=== PATIENT | male | born 1955 | race Asian ===

== ENCOUNTER 2016-08-08 09:28 | Day surgery (SDC) | payer OTHER ==
[~2016-08-08] VITALS: Ht 165.1 cm; Wt 69.6 kg
[2016-08-08 10:29] VITALS: Ht 165.1 cm; Wt 69.6 kg
[2016-08-08] MEDS ORDERED: METF500T4 PO (10:42)
[2016-08-08] MEDS ORDERED: ASPI-664 PO (10:42)
[2016-08-08] MEDS ORDERED: ATOR40TA68 PO (10:42)
[2016-08-08] MEDS ORDERED: LISI10TA2 PO (10:42)
[2016-08-08] MEDS ORDERED: MIDAZOLAM 1 MG/ML 2 ML INJ ONE (11:07)
[2016-08-08] MEDS ORDERED: PROPOFOL 40 ML ONE (11:07)
[2016-08-08] MEDS ORDERED: LIDOCAINE 2% (SDV) 5 ML INJ ONE (11:07)
[2016-08-08 11:12] VITALS: BP 139/81; PULSE 88; RESP 19
[2016-08-08 12:07] VITALS: BP 121/78; PULSE 73; RESP 19
--- NOTE | 2016-08-08 12:45 | GILP ---
DATE OF PROCEDURE: 08/08/2016 PROCEDURE: Esophagogastroduodenoscopy. SURGEON: Pk Mejia MD PREOPERATIVE DIAGNOSIS: The patient presenting with history of chronic heartburn, history of abdomi nal pain as well. Rule out peptic ulcer disease, rule out gastritis. POSTOPERATIVE DIAGNOSES: Superficial nodular gastric mucosa of the mid body and fundus of the stoma ch consistent with possible Helicobacter pylori infection. Biopsy was done from the antrum, lesser curvature and the fundus to rule out Helicobacter pylori infection. DESCRIPTION OF PROCEDURE: After informed written consent was obtained, the patient was asked to lie on the left lateral side. Intravenous anesthesia was given by anesthesiologist, Dr. Wade. When the patient became somnolent, the Olympus video upper endoscope was introduced into the orophar ynx, then into the esophagus, and esophagus appeared to show normal mucosal pattern with no ulcer, n o tumor, no esophagitis. Scope at this time was advanced into the stomach. Mid body and fundus of the stomach showed evidence of a mucosal pattern with a cobblestoning appearance with brownish and r eddish mucosal surface as well. Antrum appeared normal. Mucosa of the duodenum up to the end of th e third portion appeared normal with no duodenitis, no ulcer disease. Scope at this time was withdr awn. Biopsy was done from the antrum, the lesser curvature and the fundus to rule out H. pylori inf ection. Scope at this time was withdrawn and the procedure was terminated. PLAN: Recommend omeprazole 40 mg a day for 2 months. Meanwhile wait for the biopsy report for H py jeaneth. Dictated By: PK MEJIA MD NC/NTS Conf#: [id number] DID#: [id number] CC: PK MEJIA MD; KURT VARGAS MD;*EndCC*
--- NOTE | 2016-08-08 13:29 | GILP ---
DATE OF PROCEDURE: 08/08/2016 PROCEDURE: Colonoscopy. SURGEON: Pk Mejia MD PREOPERATIVE DIAGNOSIS: The patient presenting with history of weight loss, irregular bowel movemen ts. Rule out colorectal neoplasm. POSTOPERATIVE DIAGNOSES: A 4 mm raised polyp noted in the rectum at about 10 cm from the anus. Thi s was removed with a cold biopsy forceps. Rest of the colon appeared normal. Minimal external hemo rrhoids were noted. DESCRIPTION OF PROCEDURE: After informed written consent was obtained, the patient was asked to lie on the left lateral side. Intravenous anesthesia was given by anesthesiologist, Dr. Wade. Whe n the patient became somnolent, the Olympus video colonoscope was introduced into the rectum. At ab out 10 cm from the anus, there is evidence of a 4 to 5 mm raised polyp noted. This polyp was remove d with the help of a cold biopsy forceps. Rest of the colon appeared normal. [facility]. Minimal external hemorrhoids were noted and the procedure was termin ated. PLAN: Recommend wait for the pathology report and consider further workup. Dictated By: PK MEJIA MD NC/NTS Conf#: [id number] DID#: [id number] CC: KURT VARGAS MD; PK MEJIA MD;*EndCC*
== END 2016-08-08 12:55 | disposition home or self-care (01) ==
LOC: GIL 09:28 → EDSEX 09:28 → GIL 09:32
PROVIDERS: ATTEND Internal Medicine Gastroenterology
DX: K62.1 Rectal polyp (principal); K64.4 Residual hemorrhoidal skin tags; I10 Essential (primary) hypertension; E11.9 Type 2 diabetes mellitus without complications; E78.5 Hyperlipidemia, unspecified
CPT/HCPCS: 43239; 45380; 82962; 88305; 88312; J2250; Z7610